=== PATIENT | male | born 1990 | race Caucasian/White ===

== ENCOUNTER → 2020-08-12 10:55 | Outpatient (CLI) | payer OTHER, SELFPAY ==
--- NOTE | 2020-08-12 11:03 | XR_ITS ---
PROCEDURE: XR KNEE LT 4V CLINICAL INDICATION: left knee pain COMPARISON: No exams were available for comparison FINDINGS: No fracture or dislocation. No lytic or blastic change. There is normal mineralization. The joint spaces are well-preserved. No significant degenerative/arthritic changes. No erosive changes evident. Other findings:Small cortical defect of the distal femur at approximately 4 mm. Small sclerotic focus of the medial femoral condyle and may be due to small bone island. There is minimal increased density in the suprapatellar region suggesting small knee joint effusion IMPRESSION: Suspect small suprapatellar effusion otherwise negative left knee Dictated by: Herve Carver MD 08/12/2020 14:44 Herve Carver MD in [place] 08/12/2020 14:44
== END ==
PROVIDERS: PCP Physician Assistant; Visit Provider Physician Assistant
DX: M25.562 Pain in left knee (principal)
CPT/HCPCS: 73564

== ENCOUNTER 2020-08-24 13:52 | Outpatient (RCR) | payer OTHER, SELFPAY ==
--- NOTE | 2020-08-24 14:31 | HMH.PTOPEV ---
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 Pt reports extensive running, stairs, and squatting activities daily have likely precipitated L knee pain. Pt reports medial aspect L knee pain, with intermittent episodes of L knee catching/ clicking. Chief Complaint Pain,Stiff,Clicks,Swelling, Catches/Locks,Gives out/ Unstable,Weakness Symptom Type Ache,Sharp,Dull Symptoms Relieved By Rest/Positioning,Ice, Prescription Meds Symptoms Aggravated By Physical Activity Prior Functional Limitations None Current Functional Limitations Squatting,Walking,Stairs Symptom Description Constant but Variable Level of pain today (0-10) 2 Pain scale - at its best (0-10) 1 Pain scale - at its worst (0-10) 7 Hip/Knee Eval Gait Observation General Gait Pattern Observation No Deviations/Normal Palpation Tenderness left Knee Palpation Finding Tenderness Knee Palpation Overall Comment 2-3/4, medial jt line, 3/4 medial popiteal space MMT Hip Flexion Strength Grade 4 Good Hip Abduction Strength Grade 4- Good- Hip Adduction Strength Grade 4- Good- Hip Extension Strength Grade 4 Good Hip External Rotation Strength Grade 4 Good Hip Internal Rotation Strength Grade 4 Good Knee Extension Strength Grade 5 Normal Knee Flexion Strength Grade 5 Normal ROM Knee Flexion Active Range of Motion ( 0-131 degrees) Knee ROM Limitations Pain Effusion joint effusion knee exam standard left Mid - Patellar Circumerential Measure ( 35 cm) Special Tests Knee Anterior Annel Test Negative Left Knee Valgus Stress Test Negative Left Knee Lissy Test Negative Left Patella Apprehension Test Negative Left Outpatient Therapy Assessment Impairments Problems/Impairmments Palpation Tenderness,Impaired Range of Motion,Impaired St
== END 2020-08-24 13:55 | disposition home or self-care (01) ==
LOC: PT 13:52
PROVIDERS: PCP Physician Assistant; Visit Provider Physician Assistant
DX: M25.562 Pain in left knee (principal)
CPT/HCPCS: 97163

== ENCOUNTER 2021-07-09 20:19 | Emergency (ER) | payer OTHER, SELFPAY ==
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
[2021-07-09 20:44] VITALS: BP 125/84; PULSE 78; RESP 19; TEMP 36.6; O2SAT 99; BMI 19.0
[2021-07-09 21:41] VITALS: BP 125/84; PULSE 78; RESP 19; TEMP 36.6
== END 2021-07-09 21:50 | disposition home or self-care (01) ==
PROVIDERS: Emergency Provider Nurse Practitioner Family
DX: S63.92XA Sprain of unspecified part of left wrist and hand, initial encounter (principal); F17.290 Nicotine dependence, other tobacco product, uncomplicated; Z79.1 Long term (current) use of non-steroidal anti-inflammatories (NSAID); V29.9XXA Motorcycle rider (driver) (passenger) injured in unspecified traffic accident, initial encounter
CPT/HCPCS: 29125; 73090; 73110; 73130; 99213; G0463